=== PATIENT | male | born 1955 | race Caucasian/White ===

== ENCOUNTER 2023-07-23 22:22 | Emergency (ER) | payer SELFPAY ==
[2023-07-23 22:31] VITALS: BP 187/96; PULSE 90; RESP 18; TEMP 98.7; BMI 27.8
[2023-07-24 00:54] LABS: EOS % 3.5 % (0-4.5); HEMOGLOBIN 13.1 GM/dL (11.7-16.9); LYMPH % 22.9 % (8-40); MCH 28.3 pg (25.7-33.7); MCHC 32.8 g/dl (32.0-35.9); MEAN CELL VOLUME 86.2 fl (80-96); MEAN PLT VOLUME 7.4 fl (7.5-11.1); MONO % 11.2 % (3.8-10.2); NEUT % 61.4 % (42.8-82.8); PLATELET COUNT 196 10^3/uL (134-434); RBC 4.64 M/mm3 (4.00-5.60); RDW 16.3 % (11.9-15.9); WHITE BLOOD COUNT 7.2 K/mm3 (4.0-10.0)
[2023-07-24 01:18] LABS: POTASSIUM 3.8 mmol/L (3.5-5.1)
[2023-07-24 01:20] LABS: ALBUMIN 3.9 g/dl (3.4-5.0); BLOOD UREA NITROGEN 17.5 mg/dL (7-18); CALCIUM 9.1 mg/dL (8.5-10.1)
[2023-07-24 01:23] LABS: CREATININE 1.1 mg/dL (0.55-1.3)
[2023-07-24 01:25] LABS: BILIRUBIN,TOTAL 1.2 mg/dL (0.2-1); TOT PROT 7.3 g/dl (6.4-8.2)
== END 2023-07-24 03:26 | disposition left against medical advice (07) ==
LOC: JER 22:22
DX: I10 Essential (primary) hypertension (principal)
CPT/HCPCS: 36415; 80053; 80178; 85025; 99283-25